=== PATIENT | female | born 1940 | race Caucasian/White ===

== ENCOUNTER 2017-03-22 09:05 | Day surgery (SDC) | payer OTHER ==
[2017-03-22] MEDS ORDERED: NS 500 ML IV 500 ML IV ONE (10:01)
[2017-03-22] MEDS ORDERED: TETRACAINE 0.5% OPHTH 1 DOSE AFFEYE ONE ×2 (10:14→11:52)
[2017-03-22] MEDS ORDERED: VIGAMOX 0.5% OPHTH 1 DOSE AFFEYE ONE ×5 (10:15→12:11)
[2017-03-22] MEDS ORDERED: PROLENSA OPHTH 1 DOSE AFFEYE ONE (10:27)
[2017-03-22] MEDS ORDERED: ALPHAGAN-P OPHTH 1 DOSE AFFEYE ONE (10:28)
[2017-03-22] MEDS ORDERED: MYDRIACIL OPHTH 1 DOSE AFFEYE ONE ×3 (10:30→10:35)
[2017-03-22] MEDS ORDERED: CYCLOGYL 1% OPHTH 1 DOSE OP ONE ×3 (10:30→10:35)
[2017-03-22] MEDS ORDERED: AK-DILATE 2.5% OPHTH 1 DOSE OP ONE ×3 (10:30→10:35)
[2017-03-22] MEDS ORDERED: BETADINE OPHTH SOLN 5% EACHEYE ONE (11:52)
[2017-03-22] MEDS ORDERED: BSS OPHTH (PLAIN) 500 ML with VANCOMYCIN HCL 500 MG VIAL 25 MG, ADRENALINE CHL INJ 1 MG IR ONE ×3 (11:58)
[2017-03-22] MEDS ORDERED: DUOVISC IO ONE (11:58)
[2017-03-22] MEDS ORDERED: ADRENALINE CHL INJ IJ ONE (11:58)
[2017-03-22] MEDS ORDERED: XYLOCAINE-MPF 1% IJ ONE (11:58)
[2017-03-22 14:32] VITALS: BP 152/69
== END 2017-03-22 12:37 | disposition home or self-care (01) ==
LOC: SURG1 09:05
PROVIDERS: ATTEND Ophthalmology
PROC: 08RK3JZ Replacement of Left Lens with Synthetic Substitute, Percutaneous Approach (ICD-10-PCS; principal; 2017-03-22 17:00)
PROC: 08DK3ZZ Extraction of Left Lens, Percutaneous Approach (ICD-10-PCS; principal; 2017-03-22 17:00)
DX: H25.12 Age-related nuclear cataract, left eye (principal); H25.012 Cortical age-related cataract, left eye
CPT/HCPCS: 99100; A4217; J0170; J3370

== ENCOUNTER 2017-04-05 07:08 | Day surgery (SDC) | payer OTHER ==
[2017-04-05] MEDS ORDERED: NS 500 ML IV 500 ML IV ONE (07:18)
[2017-04-05] MEDS ORDERED: TETRACAINE 0.5% OPHTH 1 DOSE AFFEYE ONE ×2 (07:40→10:16)
[2017-04-05] MEDS ORDERED: VIGAMOX 0.5% OPHTH 1 DOSE AFFEYE ONE ×4 (07:41→10:39)
[2017-04-05] MEDS ORDERED: PROLENSA OPHTH 1 DOSE AFFEYE ONE (07:52)
[2017-04-05] MEDS ORDERED: ALPHAGAN-P OPHTH 1 DOSE AFFEYE ONE (07:53)
[2017-04-05] MEDS ORDERED: CYCLOGYL 1% OPHTH 1 DOSE OP ONE ×4 (07:54→07:57)
[2017-04-05] MEDS ORDERED: AK-DILATE 2.5% OPHTH 1 DOSE OP ONE ×4 (07:54→07:57)
[2017-04-05] MEDS ORDERED: MYDRIACIL OPHTH 1 DOSE AFFEYE ONE ×4 (07:54→07:57)
[2017-04-05] MEDS ORDERED: BETADINE OPHTH SOLN 5% EACHEYE ONE (10:17)
[2017-04-05] MEDS ORDERED: BSS OPHTH (PLAIN) 500 ML with VANCOMYCIN HCL 500 MG VIAL 25 MG, ADRENALINE CHL INJ 1 MG IR ONE ×3 (10:28)
[2017-04-05] MEDS ORDERED: DUOVISC IO ONE (10:28)
[2017-04-05] MEDS ORDERED: ADRENALINE CHL INJ IJ ONE (10:28)
[2017-04-05] MEDS ORDERED: XYLOCAINE-MPF 1% IJ ONE (10:28)
[2017-04-05 14:05] VITALS: BP 168/68
== END 2017-04-05 11:05 | disposition home or self-care (01) ==
LOC: SURG1 07:08
PROVIDERS: ATTEND Ophthalmology
PROC: 08DJ3ZZ Extraction of Right Lens, Percutaneous Approach (ICD-10-PCS; principal; 2017-04-05 12:45)
PROC: 08RJ3JZ Replacement of Right Lens with Synthetic Substitute, Percutaneous Approach (ICD-10-PCS; principal; 2017-04-05 12:45)
DX: H25.11 Age-related nuclear cataract, right eye (principal); H25.011 Cortical age-related cataract, right eye
CPT/HCPCS: 99100; A4217; J0170; J3370